=== PATIENT | male | born 1990 | race Hispanic/Latino ===

== ENCOUNTER 2020-12-31 11:51 | Emergency (ER) | payer SELFPAY ==
[~2020-12-31] VITALS: Ht 182.9 cm; Wt 117.9 kg
== END 2020-12-31 15:01 | disposition home or self-care (01) ==
LOC: ER 12:24
DX: G47.30 Sleep apnea, unspecified (principal); R05 Cough; E66.01 Morbid (severe) obesity due to excess calories; Z68.35 Body mass index [BMI] 35.0-35.9, adult
CPT/HCPCS: 70450; 71046; 99284